=== PATIENT | male | born 1940 | race Hispanic/Latino ===

== ENCOUNTER 2016-11-15 22:32 | Emergency (ER) | payer MEDICARE ==
[2016-11-15] MEDS ORDERED: CATAPRES PO ONE (23:42)
[2016-11-16 01:54] VITALS: BP 178/92
[2016-11-16 02:24] LABS: Basophils % (Auto) 0.5 % (0.0-1.8); Eosinophils % (Auto) 6.8 % (0.0-4.3); Hematocrit 34.4 % (35.5-45.6); Hemoglobin 11.5 gm/dl (11.8-15.2); Mean Corpuscular HGB Conc 33 % (32-34); Mean Corpuscular Hemoglobin 32 pg (28-32); Mean Corpuscular Volume 94 fl (84-94); Red Blood Count 3.64 M/mm3 (3.65-5.03); White Blood Count 2.8 K/mm3 (4.5-11.0)
[2016-11-16 02:26] LABS: Platelet Count 75 K/mm3 (140-440)
[2016-11-16 02:45] LABS: Anion Gap 15 mmol/L; Blood Urea Nitrogen 15 mg/dL (9-20); Calcium 8.8 mg/dL (8.4-10.2); Carbon Dioxide 28 mmol/L (22-30); Glucose 116 mg/dL (75-100); Potassium 3.8 mmol/L (3.6-5.0); Sodium 141 mmol/L (137-145)
--- NOTE | 2016-11-17 00:08 | ED Elopement Review ---
ED Pt Elopement review - Results review Lab results: Laboratory Tests 11/16/16 11/16/16 02:08 02:08 WBC 2.8 L RBC 3.64 L Hgb 11.5 L Hct 34.4 L MCV 94 MCH 32 MCHC 33 RDW 15.0 Plt Count 75 L Lymph % (Auto) 15.9 [place] % (Auto) 6.9 Eos % (Auto) 6.8 H Baso % (Auto) 0.5 Lymph # 0.4 L [place] # 0.2 Eos # 0.2 Baso # 0.0 Seg Neutrophils % 69.9 Seg Neutrophils # 1.9 Sodium 141 Potassium 3.8 Chloride 102.0 Carbon Dioxide 28 Anion Gap 15 BUN 15 Creatinine 1.0 Estimated GFR > 60 BUN/Creatinine Ratio 15.00 Glucose 116 H Calcium 8.8 - Call Back decision Pt Call Back Decision: No action required
== END 2016-11-16 03:05 | disposition left against medical advice (07) ==
LOC: ED 22:32
DX: I10 Essential (primary) hypertension (principal); Z53.21 Procedure and treatment not carried out due to patient leaving prior to being seen by health care provider
CPT/HCPCS: 36415; 80048; 85025

== ENCOUNTER 2016-12-20 10:27 | Outpatient (CLI) | payer MEDICARE ==
--- NOTE | 2016-12-20 11:52 | Cat Scan Report ---
CT LUMBAR SPINE WITHOUT CONTRAST HISTORY: Low back pain. TECHNIQUE: Helical CT in 1.25 mm intervals. Sagittal and coronal reformatted images. COMPARISON: Lumbar spine films dated 05/20/16. FINDINGS: Mild dextroscoliosis in the lumbar region is noted on the coronal reformatted images measuring approximately 9 degrees from L1-L5. There is normal height and alignment of the lumbar vertebra on the sagittal images. No compression deformity or bone lesion. Moderate to severe disc space narrowing is identified at L2-3, L4-5 and L5-S1. Mild diffuse facet arthropathy. No central canal stenosis is appreciated. L1-2: No significant abnormality. L2-3: There is moderate circumferential disc spurring. Mild facet arthropathy. No evidence for central canal stenosis or high-grade neural foraminal narrowing. L3-4: No significant abnormality. L4-5: Advanced disc space narrowing and mild circumferential spurring is identified. Minimal facet arthropathy. Bilateral neural foraminal narrowing is estimated at 25%. L5-S1: Advanced disc space narrowing and moderate circumferential spurring is identified. Minimal facet arthropathy. Bilateral neural foraminal narrowing is estimated at 50% or greater. Impression: Dextroscoliosis in the lumbar region with multilevel degenerative change as described. No acute process.
== END 2016-12-20 10:28 | disposition home or self-care (01) ==
LOC: CT 10:27
PROVIDERS: ATTEND Physical Medicine & Rehabilitation
DX: M43.06 Spondylolysis, lumbar region (principal); M41.86 Other forms of scoliosis, lumbar region; M12.88 Other specific arthropathies, not elsewhere classified, other specified site
CPT/HCPCS: 72131

== ENCOUNTER 2017-01-16 10:44 | Outpatient (CLI) | payer MEDICARE ==
--- NOTE | 2017-01-16 14:11 | Ultrasound Report ---
RIGHT UPPER QUADRANT ABDOMINAL ULTRASOUND: 01/16/17 10:44:00 CLINICAL: History of anal cancer and liver metastases. FINDINGS: High-resolution ultrasound demonstrated a normal size liver with normal overall echogenicity. No liver mass identified.. Normal hepatic vasculature and inferior vena cava. A partially contracted gallbladder with no stones. The gall bladder wall measures 2.0 mm in thickness. Normal intrahepatic and extra hepatic bile ducts. The common bile duct measures 4.3 mm diameter. The pancreas was fairly well imaged and normal. Normal upper abdominal aorta. The right kidney is normal and measures 8.7 x 5.2 x 3.5cm. No ascites or mass. IMPRESSION: Normal study. No liver metastases identified.
== END 2017-01-16 10:45 | disposition home or self-care (01) ==
LOC: SPVWC 10:44
PROVIDERS: ATTEND Internal Medicine Hematology & Oncology
DX: C78.7 Secondary malignant neoplasm of liver and intrahepatic bile duct (principal); C21.0 Malignant neoplasm of anus, unspecified; K82.0 Obstruction of gallbladder; I10 Essential (primary) hypertension; I48.91 Unspecified atrial fibrillation; E78.00 Pure hypercholesterolemia, unspecified; D64.9 Anemia, unspecified; Z87.891 Personal history of nicotine dependence
CPT/HCPCS: 76705

== ENCOUNTER 2017-02-20 07:15 | Outpatient (CLI) | payer MEDICARE ==
--- NOTE | 2017-02-21 08:27 | PET Report ---
PET SB TO MT subsequent: HISTORY: Restaging of anal cancer. TECHNIQUE: 14.0 millicuries F-18 FDG was administered intravenously. Noncontrast CT images and PET images were obtained from the skull base to the proximal thighs. Fused images were reviewed on a workstation. The patient's blood glucose level measured 111. COMPARISON: 09/19/16. FINDINGS: BRAIN: physiologic FDG uptake in the imaged brain. NECK: physiologic FDG uptake. MEDIASTINUM: physiologic FDG uptake. LUNGS: physiologic FDG uptake. PLEURA/PERICARDIUM: physiologic FDG uptake. THORACIC LYMPH NODES: physiologic FDG uptake. HEPATOBILIARY: physiologic FDG uptake. Mean liver SUV measures 2.9. PANCREAS: physiologic FDG uptake. SPLEEN: physiologic FDG uptake. ADRENAL GLANDS: physiologic FDG uptake. KIDNEYS/RENAL COLLECTING SYSTEMS: physiologic FDG uptake. BOWEL/MESENTERY: physiologic FDG uptake. PELVIC VISCERA: physiologic FDG uptake. ABDOMINAL/PELVIC LYMPH NODES: physiologic FDG uptake. MUSCULOSKELETAL: physiologic FDG uptake. IMPRESSION: Negative PET/CT. No evidence for recurrent or metastatic disease. No significant change since 09/19/16.
== END 2017-02-20 07:16 | disposition home or self-care (01) ==
LOC: PET 07:15
PROVIDERS: ATTEND Internal Medicine Hematology & Oncology
DX: C21.0 Malignant neoplasm of anus, unspecified (principal); C80.1 Malignant (primary) neoplasm, unspecified; D64.81 Anemia due to antineoplastic chemotherapy; I10 Essential (primary) hypertension; I48.91 Unspecified atrial fibrillation; E78.00 Pure hypercholesterolemia, unspecified; F32.9 Major depressive disorder, single episode, unspecified; F41.9 Anxiety disorder, unspecified
CPT/HCPCS: 78815; 82962; A9552

== ENCOUNTER 2017-04-17 09:27 | Outpatient (CLI) | payer MEDICARE ==
[2017-04-17] MEDS ORDERED: NACL ONE (10:40)
--- NOTE | 2017-04-17 11:19 | Cat Scan Report ---
CTA chest: PE protocol. History: Malignant neoplasm of anus. Findings: Dilated ascending aorta measuring 4.1 cm in diameter. Dilated pulmonary arteries. No evidence of pulmonary embolism. No mediastinal mass or adenopathy. No pleural or pericardial effusion. No nodularity or consolidation of the lung parenchyma. Impression: Probable aortic aneurysm. Pulmonary arterial hypertension. No evidence of pulmonary embolism. No nodularity of the lung parenchyma.
== END 2017-04-17 09:28 | disposition home or self-care (01) ==
LOC: CT 09:27
PROVIDERS: ATTEND Internal Medicine Hematology & Oncology
DX: C21.0 Malignant neoplasm of anus, unspecified (principal); C80.1 Malignant (primary) neoplasm, unspecified; I27.2 Other secondary pulmonary hypertension; D64.81 Anemia due to antineoplastic chemotherapy
CPT/HCPCS: 36415; 71275; 82565; 84520; Q9967

== ENCOUNTER 2017-08-04 09:42 | Emergency (ER) | payer MEDICARE | END 2017-08-04 10:44 | disposition left against medical advice (07) | LOC: ED 09:42 | DX: K92.2 Gastrointestinal hemorrhage, unspecified (principal); Z53.21 Procedure and treatment not carried out due to patient leaving prior to being seen by health care provider ==

== ENCOUNTER 2017-09-29 12:59 | Outpatient (CLI) | payer MEDICARE ==
[2017-09-29 13:29] LABS: Hematocrit 37.9 % (35.5-45.6); Hemoglobin 12.9 gm/dl (11.8-15.2); Mean Corpuscular HGB Conc 34 % (32-34); Mean Corpuscular Hemoglobin 32 pg (28-32); Mean Corpuscular Volume 93 fl (84-94); Platelet Count 123 K/mm3 (140-440); Red Blood Count 4.06 M/mm3 (3.65-5.03); Red Cell Distribution Width 13.9 % (13.2-15.2)
[2017-09-29 13:47] LABS: Albumin 4.3 g/dL (3.9-5); Calcium 9.6 mg/dL (8.4-10.2)
== END 2017-09-29 13:00 | disposition home or self-care (01) ==
LOC: LAB 12:59
PROVIDERS: ATTEND Specialist
DX: G20 Parkinson's disease (principal); Z79.899 Other long term (current) drug therapy; I10 Essential (primary) hypertension; I48.91 Unspecified atrial fibrillation; E78.00 Pure hypercholesterolemia, unspecified; F32.9 Major depressive disorder, single episode, unspecified
CPT/HCPCS: 36415; 80053; 82306; 82607; 83921; 84443; 85027; 86592

== ENCOUNTER 2018-04-08 08:02 | Outpatient (CLI) | payer MEDICARE ==
--- NOTE | 2018-04-08 10:24 | Cat Scan Report ---
CT LUMBAR SPINE WITHOUT CONTRAST History: Low back pain, spondylolysis lumbar region. Technique: Helical CT with sagittal and coronal reformatted images without contrast. Comparison: 12/20/16 Findings: Mild dextroscoliosis in the lumbar region is unchanged measuring approximately 9 degrees from L1-L5. There is no evidence for compression deformity, subluxation or bone lesion. No spondylolysis is identified. No high-grade central canal stenosis is suggested on noncontrast CT. Advanced disc space narrowing at L2-3, L4-5 and L5-S1 is unchanged. The facet joints are in appropriate relationship with minimal arthritic changes. No hypertrophic changes. The paraspinal soft tissues are unremarkable. L1-2: No significant abnormality. Mild degenerative disc findings. L2-3: Advanced disc space narrowing and circumferential spurring is identified. Bilateral neural foraminal narrowing is estimated at 25%. L3-4: No significant abnormality. L4-5: Moderate circumferential spurring and bridging right lateral osteophyte are identified. Bilateral neural foraminal narrowing is estimated at 25-50%. L5-S1: Moderate circumferential spurring is again identified. Bilateral neural foraminal narrowing is estimated at 50%. Impression: Mild dextroscoliosis of the lumbar spine with multilevel degenerative changes as outlined above. No significant change is demonstrated since 12/20/16 exam.
== END 2018-04-08 08:03 | disposition home or self-care (01) ==
LOC: CT 08:02
PROVIDERS: ATTEND Physical Medicine & Rehabilitation
DX: M41.86 Other forms of scoliosis, lumbar region (principal); M43.06 Spondylolysis, lumbar region; I10 Essential (primary) hypertension; E78.00 Pure hypercholesterolemia, unspecified; I48.91 Unspecified atrial fibrillation; K21.9 Gastro-esophageal reflux disease without esophagitis; Z90.49 Acquired absence of other specified parts of digestive tract; Z87.891 Personal history of nicotine dependence; M19.90 Unspecified osteoarthritis, unspecified site
CPT/HCPCS: 72131

== ENCOUNTER 2019-07-30 20:44 | Inpatient (IN) | payer MEDICAID, MEDICARE ==
[2019-07-30] MEDS ORDERED: SODIUM CHLORIDE 0.9% 1000 ML IV SOLN IV ONE (20:54)
--- NOTE | 2019-07-30 21:28 | Emergency Department Report ---
ED General Adult HPI - General Chief complaint: Weakness Stated complaint: SEPSIS Time Seen by Provider: 07/30/19 20:48 Source: family, EMS Mode of arrival: Stretcher Limitations: Physical Limitation - History of Present Illness Initial comments: Patient is a 78-year-old male presents emergency room with complaints of generalized weakness that began 2 days ago. The patient's daughter states that he has had a productive cough for approximately a week. She states over the last 2-3 days he has had a significant increase in his diarrhea. The daughter denies any abdominal pain, hematochezia, hematemesis, vomiting, chest pain. EMS states that on arrival he had temperature of 101.7 rectally and was satting at 85% on room air and was placed on 2 L of oxygen and improved to 94%. Patient has a past medical history of rectal cancer in remission with mets, aortic aneurysm, parkinsons. Severity scale (0 -10): 0 - Related Data Home Medications Medication Instructions Recorded Confirmed Last Taken Aspir-Low 81 mg PO DAILY 03/30/18 07/30/19 03/25/18 Digoxin 125 mcg PO DAILY 03/30/18 07/30/19 03/30/18 HYDROcodone/ACETAMINOPHEN [Vicodin 1 tab PO PRN PRN 07/31/19 07/31/19 Unknown HP 10-300 mg TAB] Previous Rx's Medication Instructions Recorded Last Taken Type levoFLOXacin [Levaquin] 750 mg PO QDAY #4 tablet 08/02/19 Unknown Rx Allergies Allergy/AdvReac Type Severity Reaction Status Date / Time ibuprofen Allergy Nausea Verified 07/10/18 10:18 ED Review of Systems ROS: Stated complaint: SEPSIS Other details as noted in HPI Comment: All other systems reviewed and negative ED Past Medical Hx - Past Medical History Previous Medical History?: Yes Hx Hypertension: Yes Hx GERD: Yes Hx of Cancer: Yes (Liver and anal now in remission for both) Hx Arthritis: Yes Hx Dementia: Yes Additional medical history: AORTIC ANEURYSM. Anal Cancer, Mets to liver & Lungs. (actively receivng Chemo), Parkinson's - Surgical History Past Surgical History?: Yes Hx Cholecystectomy: Yes Hx Appendectomy: Yes Additional Surgical History: Hernia - Social History Smoking Status: Former Smoker Substance Use Type: Prescribed - Medications Home Medications: Home Medications Medication Instructions Recorded Confirmed Last Taken Type Aspir-Low 81 mg PO DAILY 03/30/18 07/30/19 03/25/18 History Digoxin 125 mcg PO DAILY 03/30/18 07/30/19 03/30/18 History HYDROcodone/ACETAMINOPHEN [Vicodin 1 tab PO PRN PRN 07/31/19 07/31/19 Unknown History HP 10-300 mg TAB] levoFLOXacin [Levaquin] 750 mg PO QDAY #4 tablet 08/02/19 Unknown Rx ED Physical Exam - General Limitations: Physical Limitation General appearance: alert, cachectic - Head Head exam: Present: atraumatic, normocephalic - Eye Eye exam: Present: normal appearance - ENT ENT exam: Present: mucous membranes dry (mildly) - Respiratory Respiratory exam: Present: decreased breath sounds (bilaterally), other (diminished breath sounds bilaterally, difficult to assess) - Cardiovascular Cardiovascular Exam: Present: regular rate, normal rhythm, normal heart sounds. Absent: systolic murmur, diastolic murmur, rubs, gallop - GI/Abdominal GI/Abdominal exam: Present: soft, normal bowel sounds. Absent: distended, tend erness, guarding, rebound, rigid - Neurological Exam Neurological exam: Present: alert, oriented X3 - Psychiatric Psychiatric exam: Present: normal affect, normal mood - Skin Skin exam: Present: warm, dry, intact ED Course Vital Signs 07/30/19 07/30/19 07/30/19 21:00 21:05 21:07 Temperature 102.2 F H Pulse Rate 73 Respiratory 24 Rate Blood Pressure 153/87 O2 Sat by Pulse 94 94 Oximetry 07/30/19 07/30/19 07/30/19 21:15 21:31 21:45 Temperature Pulse Rate 94 H 71 69 Respiratory 18 31 H 23 Rate Blood Pressure 133/82 121/71 121/71 O2 Sat by Pulse 94 93 93 Oximetry 07/30/19 07/30/19 07/30/19 22:01 22:15 22:31 Temperature Pulse Rate 75 74 Respiratory 16 23 33 H Rate Blood Pressure 128/76 128/76 128/76 O2 Sat by Pulse 94 95 97 Oximetry 07/30/19 07/30/19 07/30/19 22:44 22:45 23:17 Temperature Pulse Rate 80 Respiratory 23 Rate Blood Pressure 148/72 148/72 148/72 O2 Sat by Pulse 92 95 Oximetry 07/30/19 07/30/19 07/31/19 23:31 23:45 00:00 Temperature Pulse Rate 66 Respiratory 25 H Rate Blood Pressure 148/72 112/67 109/59 O2 Sat by Pulse 91 91 92 Oximetry 07/31/19 07/31/19 07/31/19 00:15 00:30 00:45 Temperature Pulse Rate 60 57 L Respiratory 25 H Rate Blood Pressure 109/59 112/68 112/68 O2 Sat by Pulse 94 93 94 Oximetry 07/31/19 07/31/19 07/31/19 00:51 01:00 01:21 Temperature 100.3 F H Pulse Rate 56 L 55 L Respiratory 25 H Rate Blood Pressure 113/54 113/54 O2 Sat by Pulse 93 94 Oximetry 07/31/19 07/31/19 07/31/19 01:30 01:41 01:51 Temperature Pulse Rate 54 L 53 L 52 L Respiratory 25 H 24 24 Rate Blood Pressure 116/60 116/60 116/60 O2 Sat by Pulse 94 95 95 Oximetry - Consultations Consultation #1: 07/31/19 00:[address] Torres, Hospitalist who accepts and resumes care of patient, will admit to hospital, advised to bridge to [facility] ED Medical Decision Making - Lab Data Result diagrams: 08/01/19 06:17 08/01/19 06:17 Lab Results 07/30/19 07/30/19 07/30/19 Range/Units 21:14 21:14 21:14 WBC 3.3 L (4.5-11.0) K/mm3 RBC 4.13 (3.65-5.03) M/mm3 Hgb 12.8 (11.8-15.2) gm/dl Hct 38.0 (35.5-45.6) % MCV 92 (84-94) fl MCH 31 (28-32) pg MCHC 34 (32-34) % RDW 14.6 (13.2-15.2) % Plt Count 106 L (140-440) K/mm3 Lymph % (Auto) 3.9 L (13.4-35.0) % [place] % (Auto) 6.6 (0.0-7.3) % Eos % (Auto) 0.1 (0.0-4.3) % Baso % (Auto) 0.2 (0.0-1.8) % Lymph # 0.1 L (1.2-5.4) K/mm3 [place] # 0.2 (0.0-0.8) K/mm3 Eos # 0.0 (0.0-0.4) K/mm3 Baso # 0.0 (0.0-0.1) K/mm3 Seg Neutrophils % 89.2 H (40.0-70.0) % Seg Neutrophils # 2.9 (1.8-7.7) K/mm3 ABG pH (7.350-7.450) pH Units ABG pCO2 mm Hg ABG pO2 (80.0-90.0) mm Hg ABG HCO3 (20.0-26.0) mmol/L ABG O2 Saturation (95.0-99.0) % ABG O2 Content (0.0-44) ABG Base Excess (-2.0-3.0) mmol/L ABG Hemoglobin (14.0-18.0) gm/dl ABG Carboxyhemoglobin (0.0-5.0) % ABG Methemoglobin (0.0-1.5) % Oxyhemoglobin (95.0-99.0) % FiO2 % Sodium 138 (137-145) mmol/L Potassium 4.6 (3.6-5.0) mmol/L Chloride 98.9 (98-107) mmol/L Carbon Dioxide 23 (22-30) mmol/L Anion Gap 21 mmol/L BUN 26 H (9-20) mg/dL Creatinine 1.2 (0.8-1.5) mg/dL Estimated GFR 58 ml/min BUN/Creatinine Ratio 22 % Glucose 116 H (75-100) mg/dL Lactic Acid 1.40 (0.7-2.0) mmol/L Calcium 9.5 (8.4-10.2) mg/dL Phosphorus (2.5-4.5) mg/dL Magnesium (1.7-2.3) mg/dL Total Bilirubin 0.40 (0.1-1.2) mg/dL AST 63 H (5-40) units/L ALT 22 (7-56) units/L Alkaline Phosphatase 54 (35-129) units/L Total Creatine Kinase (55-170) units/L Troponin T 0.015 (0.00-0.029) ng/mL Total Protein 7.0 (6.3-8.2) g/dL Albumin 3.3 L (3.9-5) g/dL Albumin/Globulin Ratio 0.9 % Urine Color (Yellow) Urine Turbidity (Clear) Urine pH (5.0-7.0) Ur Specific [place] (1.003-1.030) Urine Protein (Negative) mg/dL Urine Glucose (UA) (Negative) mg/dL Urine Ketones (Negative) mg/dL Urine Blood (Negative) Urine Nitrite (Negative) Urine Bilirubin (Negative) Urine Urobilinogen (<2.0) mg/dL Ur Leukocyte Esterase (Negative) Urine WBC (Auto) (0.0-6.0) /HPF Urine RBC (Auto) (0.0-6.0) /HPF Urine Mucus /HPF 07/30/19 07/30/19 07/30/19 Range/Units 21:14 22:20 22:38 WBC (4.5-11.0) K/mm3 RBC (3.65-5.03) M/mm3 Hgb (11.8-15.2) gm/dl Hct (35.5-45.6) % MCV (84-94) fl MCH (28-32) pg MCHC (32-34) % RDW (13.2-15.2) % Plt Count (140-440) K/mm3 Lymph % (Auto) (13.4-35.0) % [place] % (Auto) (0.0-7.3) % Eos % (Auto) (0.0-4.3) % Baso % (Auto) (0.0-1.8) % Lymph # (1.2-5.4) K/mm3 [place] # (0.0-0.8) K/mm3 Eos # (0.0-0.4) K/mm3 Baso # (0.0-0.1) K/mm3 Seg Neutrophils % (40.0-70.0) % Seg Neutrophils # (1.8-7.7) K/mm3 ABG pH 7.463 H (7.350-7.450) pH Units ABG pCO2 32.0 mm Hg ABG pO2 72.4 L (80.0-90.0) mm Hg ABG HCO3 22.4 (20.0-26.0) mmol/L ABG O2 Saturation 95.7 (95.0-99.0) % ABG O2 Content 14.9 (0.0-44) ABG Base Excess -0.7 (-2.0-3.0) mmol/L ABG Hemoglobin 11.3 L (14.0-18.0) gm/dl ABG Carboxyhemoglobin 1.2 (0.0-5.0) % ABG Methemoglobin 0.7 (0.0-1.5) % Oxyhemoglobin 93.9 L (95.0-99.0) % FiO2 28 % Sodium (137-145) mmol/L Potassium (3.6-5.0) mmol/L Chloride (98-107) mmol/L Carbon Dioxide (22-30) mmol/L Anion Gap mmol/L BUN (9-20) mg/dL Creatinine (0.8-1.5) mg/dL Estimated GFR ml/min BUN/Creatinine Ratio % Glucose (75-100) mg/dL Lactic Acid (0.7-2.0) mmol/L Calcium (8.4-10.2) mg/dL Phosphorus 3.10 (2.5-4.5) mg/dL Magnesium 1.90 (1.7-2.3) mg/dL Total Bilirubin (0.1-1.2) mg/dL AST (5-40) units/L ALT (7-56) units/L Alkaline Phosphatase (35-129) units/L Total Creatine Kinase 501 H (55-170) units/L Troponin T (0.00-0.029) ng/mL Total Protein (6.3-8.2) g/dL Albumin (3.9-5) g/dL Albumin/Globulin Ratio % Urine Color Yellow (Yellow) Urine Turbidity Clear (Clear) Urine pH 6.0 (5.0-7.0) Ur Specific [place] 1.024 (1.003-1.030) Urine Protein 100 mg/dl (Negative) mg/dL Urine Glucose (UA) Neg (Negative) mg/dL Urine Ketones Neg (Negative) mg/dL Urine Blood Sm (Negative) Urine Nitrite Neg (Negative) Urine Bilirubin Neg (Negative) Urine Urobilinogen < 2.0 (<2.0) mg/dL Ur Leukocyte Esterase Neg (Negative) Urine WBC (Auto) 1.0 (0.0-6.0) /HPF Urine RBC (Auto) 5.0 (0.0-6.0) /HPF Urine Mucus Few /HPF 07/30/19 Range/Units 23:32 WBC (4.5-11.0) K/mm3 RBC (3.65-5.03) M/mm3 Hgb (11.8-15.2) gm/dl Hct (35.5-45.6) % MCV (84-94) fl MCH (28-32) pg MCHC (32-34) % RDW (13.2-15.2) % Plt Count (140-440) K/mm3 Lymph % (Auto) (13.4-35.0) % [place] % (Auto) (0.0-7.3) % Eos % (Auto) (0.0-4.3) % Baso % (Auto) (0.0-1.8) % Lymph # (1.2-5.4) K/mm3 [place] # (0.0-0.8) K/mm3 Eos # (0.0-0.4) K/mm3 Baso # (0.0-0.1) K/mm3 Seg Neutrophils % (40.0-70.0) % Seg Neutrophils # (1.8-7.7) K/mm3 ABG pH (7.350-7.450) pH Units ABG pCO2 mm Hg ABG pO2 (80.0-90.0) mm Hg ABG HCO3 (20.0-26.0) mmol/L ABG O2 Saturation (95.0-99.0) % ABG O2 Content (0.0-44) ABG Base Excess (-2.0-3.0) mmol/L ABG Hemoglobin (14.0-18.0) gm/dl ABG Carboxyhemoglobin (0.0-5.0) % ABG Methemoglobin (0.0-1.5) % Oxyhemoglobin (95.0-99.0) % FiO2 % Sodium (137-145) mmol/L Potassium (3.6-5.0) mmol/L Chloride (98-107) mmol/L Carbon Dioxide (22-30) mmol/L Anion Gap mmol/L BUN (9-20) mg/dL Creatinine (0.8-1.5) mg/dL Estimated GFR ml/min BUN/Creatinine Ratio % Glucose (75-100) mg/dL Lactic Acid 0.90 (0.7-2.0) mmol/L Calcium (8.4-10.2) mg/dL Phosphorus (2.5-4.5) mg/dL Magnesium (1.7-2.3) mg/dL Total Bilirubin (0.1-1.2) mg/dL AST (5-40) units/L ALT (7-56) units/L Alkaline Phosphatase (35-129) units/L Total Creatine Kinase (55-170) units/L Troponin T (0.00-0.029) ng/mL Total Protein (6.3-8.2) g/dL Albumin (3.9-5) g/dL Albumin/Globulin Ratio % Urine Color (Yellow) Urine Turbidity (Clear) Urine pH (5.0-7.0) Ur Specific [place] (1.003-1.030) Urine Protein (Negative) mg/dL Urine Glucose (UA) (Negative) mg/dL Urine Ketones (Negative) mg/dL Urine Blood (Negative) Urine Nitrite (Negative) Urine Bilirubin (Negative) Urine Urobilinogen (<2.0) mg/dL Ur Leukocyte Esterase (Negative) Urine WBC (Auto) (0.0-6.0) /HPF Urine RBC (Auto) (0.0-6.0) /HPF Urine Mucus /HPF - Radiology Data Radiology results: report reviewed CT ANGIOGRAPHY OF THE CHEST WITH INTRAVENOUS CONTRAST AND MULTIPLANAR MIP RECONSTRUCTIONS INDICATION / CLINICAL INFORMATION: Hypoxia. History of anal and liver cancer. TECHNIQUE: Axial CT images were obtained after injection of 100 cc Omnipaque 350 IV contrast using CTA protocol. 3 plane MIP / 3D reconstructions were produced. All CT scans at this location are performed using CT dose reduction for ALARA by means of automated exposure control. COMPARISON: 07/10/2018. FINDINGS: There is good opacification of the pulmonary arterial system bilaterally without intraluminal filling defect to suggest acute PTE. There is mild generalized ectasia of the ascending thoracic aorta without focal aneurysm or dissection. Moderate coronary artery c alcification is present. There is dense consolidation in the left lower lobe. There is mild patchy consolidation in the right lower lobe. The tracheobronchial tree is normal. There is no evidence of adenopathy or effusion. The visualized upper abdomen is normal. There is mild spondylosis without acute osseous abnormality. IMPRESSION: 1. No evidence of acute PTE. 2. Bilateral lower lobe consolidation, left greater than right. The findings may be related to bacterial or aspiration pneumonia. 3. Moderate coronary artery calcification. Signer Name: Raj Marina MD Signed: 07/30/2019 11:56 PM Workstation Name: [id number] Transcribed By: RT Dictated By: Raj Marina MD Electronically Authenticated By: Raj Marina MD Signed Date/Time: 07/30/192355 DD/ 51 TD/TT: CHEST 1 VIEW INDICATION / CLINICAL INFORMATION: fever, cough. COMPARISON: 07/10/2018 FINDINGS: SUPPORT DEVICES: None. HEART / MEDIASTINUM: No significant abnormality. LUNGS / PLEURA: There is mild pulmonary vascular congestion. No definite evidence of pneumonia or significant pleural effusion. No pneumothorax. ADDITIONAL FINDINGS: No significant additional findings. IMPRESSION: 1. Mild pulmonary vascular congestion. No other significant interval change compared with 07/10/2018. Signer Name: Susy Ramírez MD Signed: 07/30/2019 9:34 PM Workstation Name: [id number] Transcribed By: JR Dictated By: Susy Ramírez MD Electronically Authenticated By: Susy Ramírez MD Signed Date/Time: 07/30/192133 DD/ 31 - Medical Decision Making Patient is a 78-year-old male presents emergency room with complaints of generalized weakness that began 2 days ago. The patient's daughter states that he has had a productive cough for approximately a week. She states over the last 2-3 days he has had a significant increase in his diarrhea. The daughter denies any abdominal pain, hematochezia, hematemesis, vomiting, chest pain. EMS states that on arrival he had temperature of 101.7 rectally and was satting at 85% on room air and was placed on 2 L of oxygen and improved to 94%. Patient has a past medical history of rectal cancer in remission with mets, aortic aneurysm, parkinsons. vitals with elevated temp at 102, given tylenol. labs with decreased WBC. stool cultures ordered for diarrhea. CTA chest ordered due to history of cancer and hypoxia. CTA chest: 1. No evidence of acute PTE. 2. Bilateral lower lobe consolidation, left greater than right. The findings may be related to bacterial or aspiration pneumonia. 3. Moderate coronary artery ca lcification. Patient given IV antibiotics. pt admitted to the hospital for bilateral PNA, hypoxia. - Differential Diagnosis sepsis, PNA, colitis, cdiff, UTI, heart failure, PE Critical care attestation.: If time is entered above; I have spent that time in minutes in the direct care of this critically ill patient, excluding procedure time. ED Disposition Clinical Impression: SIRS (systemic inflammatory response syndrome), Hypoxia Bilateral pneumonia Qualifiers: Pneumonia type: due to unspecified organism Lung location: lower lobe of lung Qualified Code(s): J18.9 - Pneumonia, unspecified organism Diarrhea Qualifiers: Diarrhea type: unspecified type Qualified Code(s): R19.7 - Diarrhea, unspecified Disposition: 09 OP ADMIT IP TO THIS HOSP Is pt being admited?: Yes Does the pt Need Aspirin: No Condition: Serious Time of Disposition: 00:36
[2019-07-30 21:34] LABS: Basophils % (Auto) 0.2 % (0.0-1.8); Eosinophils % (Auto) 0.1 % (0.0-4.3); Hemoglobin 12.8 gm/dl (11.8-15.2); Lymphocytes # (Auto) 0.1 K/mm3 (1.2-5.4); Lymphocytes % (Auto) 3.9 % (13.4-35.0); Mean Corpuscular HGB Conc 34 % (32-34); Mean Corpuscular Volume 92 fl (84-94); Monocytes # (Auto) 0.2 K/mm3 (0.0-0.8); Monocytes % (Auto) 6.6 % (0.0-7.3); Platelet Count 106 K/mm3 (140-440); Red Blood Count 4.13 M/mm3 (3.65-5.03); Red Cell Distribution Width 14.6 % (13.2-15.2)
--- NOTE | 2019-07-30 21:38 | XRay Report ---
CHEST 1 VIEW INDICATION / CLINICAL INFORMATION: fever, cough. COMPARISON: 07/10/2018 FINDINGS: SUPPORT DEVICES: None. HEART / MEDIASTINUM: No significant abnormality. LUNGS / PLEURA: There is mild pulmonary vascular congestion. No definite evidence of pneumonia or sig nificant pleural effusion. No pneumothorax. ADDITIONAL FINDINGS: No significant additional findings. IMPRESSION: 1. Mild pulmonary vascular congestion. No other significant interval change compared with 07/10/2018. Signer Name: Susy Ramírez MD Signed: 07/30/2019 9:34 PM Workstation Name: [id number]
[2019-07-30 21:57] LABS: Albumin 3.3 g/dL (3.9-5); Calcium 9.5 mg/dL (8.4-10.2)
[2019-07-30] MEDS ORDERED: ACETAMINOPHEN 325 MG TAB PO ONE (22:11)
[2019-07-30 22:42] LABS: ABG Base Excess -0.7 mmol/L (-2.0-3.0); ABG HCO3 22.4 mmol/L (20.0-26.0); ABG Methemoglobin 0.7 % (0.0-1.5); ABG Oxygen Saturation 95.7 % (95.0-99.0); ABG PH 7.463 pH Units (7.350-7.450); ABG PO2 72.4 mm Hg (80.0-90.0)
[2019-07-30 22:50] LABS: Bilirubin,Urine NEG (Negative); Blood,Urine SM (Negative); Color,Urine Yellow (Yellow); Mucus,Urine FEW /HPF; Urobilinogen,Urine < 2.0 mg/dL (<2.0)
--- NOTE | 2019-07-31 00:01 | Cat Scan Report ---
CT ANGIOGRAPHY OF THE CHEST WITH INTRAVENOUS CONTRAST AND MULTIPLANAR MIP RECONSTRUCTIONS INDICATION / CLINICAL INFORMATION: Hypoxia. History of anal and liver cancer. TECHNIQUE: Axial CT images were obtained after injection of 100 cc Omnipaque 350 IV contrast using CTA protocol. 3 plane MIP / 3D reconstructions were produced. All CT scans at this location are performed using CT dose reduction for ALARA by means of automated exposure control. COMPARISON: 07/10/2018. FINDINGS: There is good opacification of the pulmonary arterial system bilaterally without intraluminal filling defect to suggest acute PTE. There is mild generalized ectasia of the ascending thoracic aorta witho ut focal aneurysm or dissection. Moderate coronary artery calcification is present. There is dense consolidation in the left lower lobe. There is mild patchy consolidation in the right lower lobe. The tracheobronchial tree is normal. There is no evidence of adenopathy or effusion. The visualized upper abdomen is normal. There is mild spondylosis without acute osseous abnormality. IMPRESSION: 1. No evidence of acute PTE. 2. Bilateral lower lobe consolidation, left greater than right. The findings may be related to bacter ial or aspiration pneumonia. 3. Moderate coronary artery calcification. Signer Name: Raj Marina MD Signed: 07/30/2019 11:56 PM Workstation Name: [id number]
[2019-07-31] MEDS ORDERED: cefTRIAXone/NS 1 GM/50 ML 1 GM/50 ML BAG IV ONE ×2 (00:06→01:21)
[2019-07-31] MEDS ORDERED: metroNIDAZOLE/NS 500 MG/100 ML 500 MG/100 ML BAG IV ONE (00:06)
[2019-07-31] MEDS ORDERED: ONDANSETRON 4 MG/2 ML INJ IV PRN ×2 (00:34→00:54)
[2019-07-31] MEDS ORDERED: ACETAMINOPHEN 325 MG TAB PO PRN ×2 (00:34→00:54)
[2019-07-31] MEDS ORDERED: MAGNESIUM HYDROXIDE (MOM) ORAL LIQD UDC PO PRN (00:54)
[2019-07-31] MEDS: SODIUM CHLORIDE 0.9% 1000 ML 1,000 ML IV SCH ×3 (02:38→20:59)
--- NOTE | 2019-07-31 04:41 | History and Physical Report ---
History of Present Illness Date of examination: 07/31/19 Date of admission: 07/31/19 00:34 Chief complaint: Generalized body weakness Cough Diarrhea History of present illness: Patient is a 78-year-old male with significant history of Parkinson's disease, dementia, anal cancer in remission currently on chemo therapy presenting to the emergency room today with complaints of generalized body weakness, cough and diarrhea. There has been no history of chest pain but according to daughter who was by the bedside patient has had a productive cough over the past 2 to 3 days. Upon arrival of EMS patient was said to have had a fever, oxygen saturation in the 80s and was placed on oxygen with significant improvement to saturation in the 90s. Work-up in the emergency room was consistent with pneumonia. Past History Past Medical History: GERD, hypertension, other (Dementia, history of anal cancer in remission with mets to the liver and lungs newly receiving chemotherapy, Parkinson's disease) Past Surgical History: appendectomy, cholecystectomy, Other (To have hernia surgery) Social history: smoking (Patient is a former smoker) Family history: no significant family history Medications and Allergies Allergies Allergy/AdvReac Type Severity Reaction Status Date / Time ibuprofen Allergy Nausea Verified 07/10/18 10:18 Home Medications Medication Instructions Recorded Confirmed Last Taken Type Aspir-Low 81 mg PO DAILY 03/30/18 07/30/19 03/25/18 History Digoxin 125 mcg PO DAILY 03/30/18 07/30/19 03/30/18 History Active Meds: Active Medications Acetaminophen (Tylenol) 650 mg PO Q4H PRN PRN Reason: Pain MILD(1-3)/Fever >100.5/TOBIN Sodium Chloride (Nacl 0.9% 1000 Ml) 1,000 mls @ 125 mls/hr IV DIRECT CHRISTELLE Last Admin: 07/31/19 02:38 Dose: 125 mls/hr Documented by: Levofloxacin/Dextrose (Levaquin 750mg/150ml) 750 mg in 150 mls @ 100 mls/hr IV Q24HR CHRISTELLE; Protocol Metronidazole (Flagyl 500 Mg/100 Ml) 500 mg in 100 mls @ 100 mls/hr IV Q8HR CHRISTELLE; Protocol Magnesium Hydroxide (Milk Of Magnesia) 30 ml PO Q4H PRN PRN Reason: Constipation Ondansetron HCl (Zofran) 4 mg IV Q8H PRN PRN Reason: Nausea And Vomiting Sodium Chloride (Sodium Chloride Flush Syringe 10 Ml) 10 ml IV BID CHRISTELLE Sodium Chloride (Sodium Chloride Flush Syringe 10 Ml) 10 ml IV PRN PRN PRN Reason: LINE FLUSH Review of Systems Constitutional: fever, weakness Cardiovascular: shortness of breath, no chest pain Respiratory: cough Gastrointestinal: diarrhea, no nausea, no vomiting Genitourinary Male: no dysuria, no hematuria Neurological: no change in speech, no confusion Exam - Constitutional Vitals: Temp Pulse Resp BP Pulse Ox 98.8 F 49 L 18 116/60 94 07/31/19 02:07 07/31/19 02:07 07/31/19 02:07 07/31/19 02:21 07/31/19 04:06 General appearance: Present: no acute distress, well-nourished - EENT Eyes: Present: PERRL, EOM intact ENT: hearing intact, clear oral mucosa, dentition normal - Neck Neck: Present: supple, normal ROM - Respiratory Respiratory effort: normal Respiratory: bilateral: diminished - Cardiovascular Rhythm: regular Heart Sounds: Present: S1 & S2 - Extremities Extremities: no ischemia, pulses intact, No edema, Full ROM Peripheral Pulses: within normal limits - Abdominal General gastrointestinal: Present: soft, non-tender, non-distended, normal bowel sounds - Integumentary Integumentary: Present: clear, warm, dry - Musculoskeletal Musculoskeletal: strength equal bilaterally - Psychiatric Psychiatric: appropriate mood/affect, intact judgment & insight, cooperative - Neurologic Neurologic: CNII-XII intact, moves all extremities Results - Labs CBC & Chem 7: 07/30/19 21:14 07/30/19 21:14 Labs: Abnormal lab results 07/30/19 07/30/19 07/30/19 Range/Units 21:14 21:14 21:14 WBC 3.3 L (4.5-11.0) K/mm3 Plt Count 106 L (140-440) K/mm3 Lymph % (Auto) 3.9 L (13.4-35.0) % Lymph # 0.1 L (1.2-5.4) K/mm3 Seg Neutrophils % 89.2 H (40.0-70.0) % ABG pH (7.350-7.450) pH Units ABG pO2 (80.0-90.0) mm Hg ABG Hemoglobin (14.0-18.0) gm/dl Oxyhemoglobin (95.0-99.0) % BUN 26 H (9-20) mg/dL Glucose 116 H (75-100) mg/dL AST 63 H (5-40) units/L Total Creatine Kinase 501 H (55-170) units/L Albumin 3.3 L (3.9-5) g/dL 07/30/19 Range/Units 22:20 WBC (4.5-11.0) K/mm3 Plt Count (140-440) K/mm3 Lymph % (Auto) (13.4-35.0) % Lymph # (1.2-5.4) K/mm3 Seg Neutrophils % (40.0-70.0) % ABG pH 7.463 H (7.350-7.450) pH Units ABG pO2 72.4 L (80.0-90.0) mm Hg ABG Hemoglobin 11.3 L (14.0-18.0) gm/dl Oxyhemoglobin 93.9 L (95.0-99.0) % BUN (9-20) mg/dL Glucose (75-100) mg/dL AST (5-40) units/L Total Creatine Kinase (55-170) units/L Albumin (3.9-5) g/dL Assessment and Plan - Patient Problems (1) Bilateral pneumonia Current Visit: Yes Status: Acute Qualifiers: Pneumonia type: due to unspecified organism Lung location: lower lobe of lung Qualified Code(s): J18.9 - Pneumonia, unspecified organism Plan to address problem: Patient placed on empiric IV antibiotics. We await blood culture results. (2) Diarrhea Current Visit: Yes Status: Acute Qualifiers: Diarrhea type: unspecified type Qualified Code(s): R19.7 - Diarrhea, unspecified Plan to address problem: Stool studies will be done. We will also place patient on IV fluid. (3) Hypoxia Current Visit: Yes Status: Acute Plan to address problem: We will keep oxygen saturation greater or equal to 92% (4) DVT prophylaxis Current Visit: No Status: Acute Plan to address problem: Patient placed on subcutaneous heparin. (5) Full code status Current Visit: No Status: Acute
[2019-07-31] MEDS: metroNIDAZOLE/NS 500 MG/100 ML 500 MG/100 ML BAG IV SCH ×3 (05:27→22:07)
[2019-07-31] MEDS: ASPIRIN 81 MG TAB CHEW PO SCH (09:22)
[2019-07-31] MEDS ORDERED: DIGOXIN 125 MCG PO SCH (10:00)
[2019-07-31] MEDS ORDERED: ASPIR LOW 81 MG PO SCH (10:00)
--- NOTE | 2019-07-31 14:31 | Event Note ---
Date: 07/31/19 patient seen and examined Patient is a 78-year-old male with significant history of Parkinson's disease, dementia, anal cancer in remission currently on chemo therapy presenting to the emergency room today with complaints of generalized body weakness, cough and diarrhea. started on abx, CXR showed b/l PNA cont current Mx and plan
[2019-07-31] MEDS: DIGOXIN 0.125 MG TAB PO SCH (17:06)
[2019-07-31] MEDS: oxyCODONE /ACETAMINOPHEN 5-325MG TAB PO PRN (22:07)
[2019-08-01] MEDS: SODIUM CHLORIDE 0.9% 1000 ML 1,000 ML IV SCH ×2 (05:34→14:07)
[2019-08-01] MEDS: metroNIDAZOLE/NS 500 MG/100 ML 500 MG/100 ML BAG IV SCH ×3 (05:35→21:04)
[2019-08-01] MEDS: oxyCODONE /ACETAMINOPHEN 5-325MG TAB PO PRN (05:35)
[2019-08-01 06:38] LABS: Basophils % (Auto) 0.2 % (0.0-1.8); Eosinophils % (Auto) 0.1 % (0.0-4.3); Hematocrit 30.4 % (35.5-45.6); Hemoglobin 10.4 gm/dl (11.8-15.2); Lymphocytes # (Auto) 0.3 K/mm3 (1.2-5.4); Lymphocytes % (Auto) 12.8 % (13.4-35.0); Mean Corpuscular HGB Conc 34 % (32-34); Mean Corpuscular Volume 91 fl (84-94); Monocytes # (Auto) 0.2 K/mm3 (0.0-0.8); Monocytes % (Auto) 7.4 % (0.0-7.3); Red Blood Count 3.34 M/mm3 (3.65-5.03); Red Cell Distribution Width 14.2 % (13.2-15.2)
[2019-08-01 06:39] LABS: Platelet Count 79 K/mm3 (140-440)
[2019-08-01 06:45] LABS: INR 1.15 (0.87-1.13)
[2019-08-01 07:02] LABS: BUN/Creatinine Ratio 19; Blood Urea Nitrogen 19 mg/dL (9-20); Calcium 8.3 mg/dL (8.4-10.2); Hemolysis Index 1
[2019-08-01] MEDS: ASPIRIN 81 MG TAB CHEW PO SCH (09:42)
--- NOTE | 2019-08-01 13:36 | Progress Note ---
Assessment and Plan / Bilateral pneumonia -likely community-acquired Patient placed on empiric IV antibiotics. We await blood culture results. / Diarrhea Stool studies ordered but not obtained diarrhea has resolved from. We will CONTINUE patient on IV fluid. / Hypoxia, likely from PNA We will keep oxygen saturation greater or equal to 92% with N/C as needed /History of Parkinson's disease patient currently not on any medications at home, will f/u outpt with neurologist /Dementia, cont supportive care /Severe protein calorie malnutrition -Consult dietitian, add nutritional supplements /DVT prophylaxis Patient placed on subcutaneous heparin. /Full code status Brief history: Patient is a 78-year-old male with significant history of Parkinson's disease, dementia, anal cancer in remission currently on chemo therapy presenting to the emergency room today with complaints of generalized body weakness, cough and diarrhea. started on abx, CXR showed b/l PNA. Subjective Date of service: 08/01/19 Interval history: Patient seen and examined. Medical records and medication list reviewed. No acute event overnight noted by the RN. Patient states his diarrhea resolved. Patient is tolerating diet. Patient does complains of generalized weakness and shortness of breath with exertion Discussed plan of care at bedside with patient and his daughter. Objective - Exam Narrative Exam: GENERAL: Elderly malnourished white male lying on bed appeared to be in no discomfort. HEENT: Normocephalic. Atraumatic. No conjunctival congestion or icterus. Patient has moist mucous membranes. NECK: Supple. Trachea midline. CHEST/LUNGS: Positive Rales auscultated bilaterally, breathing nonlabored. No wheezes or crackles HEART/CARDIOVASCULAR: Regular in rate and rhythm. S1 and S2 positive. ABDOMEN: Abdomen is soft, nontender. Patient has normal bowel sounds. SKIN: There is no rash. Warm and dry. NEURO: No focal motor deficit. Follows command. MUSCULOSKELETAL: No joint effusion or tenderness. Generalized muscle wasting EXTRIMITY: No edema, no cyanosis or clubbing. PSYCH: Cooperative. - Constitutional Vitals: Vital Signs - 12hr 08/01/19 08/01/19 08/01/19 02:48 05:35 07:27 Temperature 98.0 F Pulse Rate 51 L Pulse Rate [ From Monitor] Respiratory 18 20 Rate Blood Pressure 134/72 O2 Sat by Pulse 94 92 Oximetry 08/01/19 08/01/19 07:37 10:00 Temperature 98.6 F Pulse Rate 53 L 60 Pulse Rate [ 60 From Monitor] Respiratory 18 18 Rate Blood Pressure 144/64 O2 Sat by Pulse 99 99 Oximetry - Labs CBC & Chem 7: 08/01/19 06:17 08/01/19 06:17 Labs: Abnormal lab results 08/01/19 08/01/19 08/01/19 Range/Units 06:17 06:17 06:17 WBC 2.4 L (4.5-11.0) K/mm3 RBC 3.34 L (3.65-5.03) M/mm3 Hgb 10.4 L (11.8-15.2) gm/dl Hct 30.4 L D (35.5-45.6) % Plt Count 79 L (140-440) K/mm3 Lymph % (Auto) 12.8 L (13.4-35.0) % [place] % (Auto) 7.4 H (0.0-7.3) % Lymph # 0.3 L (1.2-5.4) K/mm3 Seg Neutrophils % 79.5 H (40.0-70.0) % INR 1.15 H (0.87-1.13) APTT 46.0 H (24.2-36.6) Sec. Carbon Dioxide 20 L (22-30) mmol/L Calcium 8.3 L (8.4-10.2) mg/dL
[2019-08-01] MEDS: DIGOXIN 0.125 MG TAB PO SCH (17:24)
[2019-08-02] MEDS: SODIUM CHLORIDE 0.9% 1000 ML 1,000 ML IV SCH ×2 (00:42→11:53)
[2019-08-02] MEDS: oxyCODONE /ACETAMINOPHEN 5-325MG TAB PO PRN (02:54)
[2019-08-02] MEDS: metroNIDAZOLE/NS 500 MG/100 ML 500 MG/100 ML BAG IV SCH ×2 (05:09→13:22)
[2019-08-02] MEDS: ASPIRIN 81 MG TAB CHEW PO SCH (08:59)
--- NOTE | 2019-08-02 12:47 | Discharge Summary ---
Providers - Providers Date of Admission: 07/31/19 00:34 Date of discharge: 08/02/19 Attending physician: YANDEL CORNELIUS 08/01/19 13:01 Physical Therapy Evaluation and Treat [CONS] Routine Comment: Reason For Exam: placement Primary care physician: [employer] Hospitalization Condition: Serious Hospital course: Brief history: Patient is a 78-year-old male with significant history of Parkinson's disease, dementia, anal cancer in remission currently on chemo therapy presenting to the emergency room with complaints of generalized body weakness, cough and diarrhea. started on abx, CXR showed b/l PNA. Discharge diagnosis and mx: / Bilateral pneumonia -likely community-acquired Patient placed on empiric IV antibiotics. We await blood culture results. / Diarrhea Stool studies ordered but not obtained diarrhea has resolved. We will CONTINUE patient on IV fluid. / Hypoxia, likely from PNA We will keep oxygen saturation greater or equal to 92% with N/C as needed /History of Parkinson's disease patient currently not on any medications at home, will f/u outpt with neurologist /Dementia, cont supportive care /Severe protein calorie malnutrition -Consult dietitian, add nutritional supplements /Pancytopenia, likely chronic with unknown etiology -Continue to monitor CBC -We will order for vitamin B12 and iron study DVT prophylaxis, SCD Disposition: home with hospice Physical exam GENERAL: Elderly malnourished white male lying on bed appeared to be in no dis comfort. HEENT: Normocephalic. Atraumatic. No conjunctival congestion or icterus. Patient has moist mucous membranes. NECK: Supple. Trachea midline. CHEST/LUNGS: Positive Rales auscultated bilaterally, breathing nonlabored. No wheezes or crackles HEART/CARDIOVASCULAR: Regular in rate and rhythm. S1 and S2 positive. ABDOMEN: Abdomen is soft, nontender. Patient has normal bowel sounds. SKIN: There is no rash. Warm and dry. NEURO: No focal motor deficit. Follows command. MUSCULOSKELETAL: No joint effusion or tenderness. Generalized muscle wasting EXTRIMITY: No edema, no cyanosis or clubbing. PSYCH: Cooperative. Disposition: DC-50 TO HOSPICE (HOME) Time spent for discharge: 34 minutes Core Measure Documentation - Palliative Care Palliative Care/ Comfort Measures: Hospice Care Exam - Constitutional Vitals: Temp Pulse Resp BP Pulse Ox 98.1 F 54 L 18 156/74 95 08/02/19 07:28 08/02/19 09:35 08/02/19 09:35 08/02/19 07:28 08/02/19 09:52 Plan Activity: fall precautions Weight Bearing Status: Non-Weight Bearing Diet: advance as tolerated Follow up with: PRIMARY CARE,MD [Primary Care Provider] - 7 Days Prescriptions: levoFLOXacin [Levaquin] 750 mg PO QDAY #4 tablet
[2019-08-02] MEDS: DIGOXIN 0.125 MG TAB PO SCH (17:30)
[2019-08-02 17:31] VITALS: BP 141/74
== END 2019-08-02 17:45 | disposition hospice, home (50) | DRG 193 ==
LOC: ED 20:44 → 2B-ACE 07-31 00:34
PROVIDERS: ADMIT Internal Medicine Geriatric Medicine; ATTEND Internal Medicine
PROC: 4A033R1 Measurement of Arterial Saturation, Peripheral, Percutaneous Approach (ICD-10-PCS; principal; 2019-07-30)
DX: J18.9 Pneumonia, unspecified organism (principal); E43 Unspecified severe protein-calorie malnutrition; Z68.1 Body mass index [BMI] 19.9 or less, adult; D61.818 Other pancytopenia; R65.10 Systemic inflammatory response syndrome (SIRS) of non-infectious origin without acute organ dysfunction; R09.02 Hypoxemia; R19.7 Diarrhea, unspecified; G20 Parkinson's disease; I10 Essential (primary) hypertension; K21.9 Gastro-esophageal reflux disease without esophagitis; M19.90 Unspecified osteoarthritis, unspecified site; F02.80 Dementia in other diseases classified elsewhere, unspecified severity, without behavioral disturbance, psychotic disturbance, mood disturbance, and anxiety; Z90.49 Acquired absence of other specified parts of digestive tract; Z87.891 Personal history of nicotine dependence; Z79.82 Long term (current) use of aspirin
CPT/HCPCS: 36415; 71045; 71275; 80048; 80053; 81001; 82140; 82550; 82803; 83735; 84100; 84484; 85025; 85610; 85730; 87040; 87116; 93005; 93010; 94760; 96365; 96367; 96375; G0378; J0696; J1956; J2405; J7030; Q9967